=== PATIENT | male | born 1955 | race Caucasian/White ===

== ENCOUNTER 2016-10-08 07:44 | Inpatient (IN) | payer BC ==
[2016-10-08] MEDS ORDERED: SODIUM CHLORIDE 0.9% 1,000 ML IV STA ×2 (08:49)
[2016-10-08] MEDS ORDERED: ONDANSETRON 4 MG/2 ML VIAL IVP STA (08:49)
[2016-10-08] MEDS ORDERED: PANTOPRAZOLE 40 MG/10 ML VIAL IVP STA (08:49)
[2016-10-08 09:09] LABS: Aty Lym Flag Moderate; CH 32.1; CHCM 34.4; HCT 39.8 % (39.0-53.0); HDW 2.67; HGB 13.7 gm/dL (13.0-17.5); MCH 32.4 pg (25.0-35.0); MCHC 34.5 g/dL (31.0-37.0); MCV 93.7 fL (80.0-100.0); RBC 4.24 m/uL (4.30-5.90); RDW 12.8 % (11.5-15.5); WBC 7.1 k/uL (3.8-10.6); WBC (Perox) 7.41
[2016-10-08 09:22] LABS: INR 1.1 (<1.1); Partial Thromboplastin Time 24.1 sec (22.0-30.0); Prothrombin Time 11.1 sec (9.0-12.0)
[2016-10-08 09:29] LABS: Add Differential Manual Differential
[2016-10-08 09:34] LABS: Nucleated Red Blood Cells 0 /100 WBC (0-0); Total Cells Counted 100
--- NOTE | 2016-10-08 09:39 | CT ---
EXAMINATION TYPE: CT brain wo con DATE OF EXAM: 10/08/2016 9:34 AM COMPARISON: NONE HISTORY: 61-year-old male low Blood Pressure, right eye pain with visual abnormalities. TECHNIQUE: Examination was done in axial plane without intravenous contrast. Coronal and sagittal r econstructions performed. CT DLP: 1121 mGycm Automated exposure control for dose reduction was used. FINDINGS: There is no evidence of acute intracranial hemorrhage, acute ischemic changes, mass, mass-effect, or extra-axial fluid collection. There is no effacement of cerebral sulci or basal subarachnoid cister ns. There is no hydrocephalus. There is no midline shift. Mccollum-white matter distinction is preserv ed. Slight rightward nasal septal deviation. Paranasal sinuses and mastoid air cells are well pneumatized . Orbits and globes are intact. IMPRESSION: No acute intracranial abnormality seen.
[2016-10-08 09:45] LABS: Calcium 9.2 mg/dL (8.4-10.2); Potassium 5.8 mmol/L (3.5-5.1); Total Bilirubin 1.1 mg/dL (0.2-1.3); Total Protein 6.6 g/dL (6.3-8.2)
[2016-10-08 09:46] LABS: Creatine Kinase 51 U/L (55-170)
--- NOTE | 2016-10-08 09:55 | CT ---
EXAMINATION TYPE: CT abdomen pelvis wo con DATE OF EXAM: 10/08/2016 9:42 AM COMPARISON: 02/25/[address] chest 03/16/2013 HISTORY: 61-year-old male Abdominal pain, diarrhea for one week, dehydration. CT DLP: 715 mGycm. Automated exposure control for dose reduction was used. TECHNIQUE: Contiguous axial scanning of the abdomen and pelvis without IV contrast. Coronal and sagit sherrill reconstructions performed. FINDINGS: The heart is normal size without pericardial effusion. A 5 mm peripheral right lower lobe pulmonary n odule axial image 6 not clearly seen on 03/16/2013 and not included in the field of view on 02/25/2014. Six-month follow-up CT chest recommended. Cholecystectomy clips. Noncontrast appearance of the liver, adrenal glands, spleen, and pancreas grossly unremarkable. There is either a 3 mm vascular calcification or nonobstructive calculus in the upper pole left kidney. Re demonstrated atrophic right kidney. Moderate to severe atherosclerotic calcifications throughout the abdominal aorta and iliac arteries w ith postsurgical changes of aortobifemoral bypass as well as femorofemoral bypass. Patency cannot be assessed on this noncontrast exam. The right-sided bypass at the level of the right external iliac ar daniela remains similarly flattened. Scattered nonenlarged and mildly enlarged retroperitoneal lymph nodes measuring up to 1 cm are unchan ged from 2014. Scattered nonenlarged and borderline enlarged mesenteric lymph nodes are also present measuring up to 7 mm. Some of these mesenteric lymph nodes may be minimally larger from 2014 but othe r schneider are largely stable. No dilated small bowel, free fluid, or free air. There is liquid stool seen throughout the colon. Inc identally, there is ahaustral appearance to the distal sigmoid, axial image 69. Mild proximal sigmoid diverticulosis without acute diverticulitis seen. Bladder nondistended. Prostate gland mildly enlarged at 4.1 cm wide. Rectum appears normal. No abnorm al fluid collection in the pelvis. Some prominent bilateral external iliac chain lymph nodes measurin g up to 9 mm are unchanged from 2014 suggesting chronic reactive changes. Bones: Mild degenerative changes of the hips. Additional degenerative bony ankylosis of the SI joints and degenerative changes lower lumbar spine. No osseous destructive process. IMPRESSION: 1. Fluid-filled small bowel loops and liquid stool throughout the colon suggesting enteritis. 2. Moderate to severe atherosclerotic changes and prior aortobifemoral and femorofemoral bypass. Pat ency not assessed on this noncontrast study. Ahaustral appearance to the distal sigmoid could reflect chronic ischemic colitis. 3. Proximal to mid sigmoid diverticulosis without acute diverticulitis. 4. A 5 mm right lower lobe pulmonary nodule. 6 month follow-up CT chest can reassess. 5. Scattered nonenlarged and mildly enlarged abdominal and pelvic lymph nodes are largely stable fro 2013 suggesting a chronic reactive/post inflammatory etiology.
[2016-10-08 09:58] LABS: Creatine Kinase MB 1.5 ng/mL (0.0-2.4); Troponin I <0.012 ng/mL (0.000-0.034)
[2016-10-08] MEDS ORDERED: metroNIDAZOLE-NS PMX 500 MG in SALINE 1 100ML.BAG IVPB STA (12:55)
[2016-10-08] MEDS ORDERED: PIPERACILLIN-TAZOBACTAM 3.375 GM in DEXTROSE/WATER 1 50ML.BAG IVPB STA (12:55)
[2016-10-08] MEDS ORDERED: SODIUM CHLORIDE 0.9% 500 ML IV STA (13:06)
--- NOTE | 2016-10-08 13:06 | ED ---
General Adult HPI - General Chief complaint: Syncope Stated complaint: right eye pain, dehydration Time Seen by Provider: 10/08/16 08:40 Source: patient Mode of arrival: wheelchair Limitations: no limitations - History of Present Illness Initial comments: This 61-year-old white male presents with a complaint of diarrhea and near syncope. He states that for the past 5 days he's had diarrhea approximately every 20 minutes. He denies any blood in his stool. He relates that the diarrhea is a yellowish mucousy consistency. He has felt presyncopal. He called his doctor's office yesterday and was prescribed Flagyl. He's had a couple episodes of nausea and vomiting. He denies any recent antibiotic use or recent travel. Said some bilateral lower abdominal pain. He presents through triage and is hypotensive. relates that he's had a multitude of vascular problems including carotid stenosis and bilateral carotid endarterectomies as well as multiple cardiac stents and bilateral fem-pop bypasses. She relates that he's had some blockage in his carotid arteries despite the surgery. He apparently had some right eye pain in his vision was off initially upon arrival to triage. His symptoms in this regard have resolved by the time I see him. No other complaints or modifying factors. - Related Data Home Medications Medication Instructions Recorded Confirmed Aspirin 81 mg PO DAILY 02/25/14 10/08/16 Atorvastatin [Lipitor] 80 mg PO HS 02/25/14 10/08/16 Lisinopril [Zestril] 20 mg PO BID 02/25/14 10/08/16 Cholecalciferol [Vitamin D3] 2,000 unit PO DAILY 11/09/15 10/08/16 Clopidogrel [Plavix] 75 mg PO DAILY 11/09/15 10/08/16 Vitamin B Complex 1 cap PO DAILY 11/09/15 10/08/16 amLODIPine [Norvasc] 10 mg PO BID 11/09/15 10/08/16 Ascorbic Acid [Vitamin C] 1,000 mg PO DAILY 10/08/16 10/08/16 Atenolol [Tenormin] 12.5 mg PO DAILY 10/08/16 10/08/16 Chlorthalidone [Hygroton] 25 mg PO DAILY 10/08/16 10/08/16 Isosorbide Mononitrate ER [Imdur] 60 mg PO DAILY 10/08/16 10/08/16 Nitroglycerin Sl Tabs [Nitrostat] 0.4 mg SUBLINGUAL Q5M PRN 10/08/16 10/08/16 Ranolazine [Ranexa] 500 mg PO Q12H 10/08/16 10/08/16 hydrALAZINE HCL [Apresoline] 50 mg PO Q8H 10/08/16 10/08/16 Allergies Allergy/AdvReac Type Severity Reaction Status Date / Time No Known Allergies Allergy Verified 10/08/16 09:03 Review of Systems ROS Statement: Those systems with pertinent positive or pertinent negative responses have been documented in the HPI. ROS Other: All systems not noted in ROS Statement are negative. Past Medical History Past Medical History: Coronary Artery Disease (CAD), Chest Pain / Angina, Hyperlipidemia, Hypertension, Myocardial Infarction ([place]), Renal Disease, Vascular Disorder Additional Past Medical History / Comment(s): THIRD STAGE KIDNEY DISEASE, HX OF COLON POLYP. Last Myocardial Infarction Date:: unknown History of Any Multi-Drug Resistant Organisms: None Reported Past Surgical History: Cholecystectomy, Coronary Bypass/CABG, Heart Catheterization With Stent Additional Past Surgical History / Comment(s): TRIPLE CABG, HEART CATH WITH 2 STENTS, ZEESHAN CAROTID ENDARTERECTOMY,. BYPASS SURGERY ARM, BI-FEM SURGERY, FEM- FEM SURGERY . Past Anesthesia/Blood Transfusion Reactions: No Reported Reaction Date of Last Stent Placement:: 2011 Past Psychological History: No Psychological Hx Reported Smoking Status: Former smoker Past Alcohol Use History: None Reported Additional Past Alcohol Use History / Comment(s): SMOKED 1 & 1/2 PPD FOR 35 YEARS OR MORE. QUIT SMOKING 6 YRS AGO . (2009) Past Drug Use History: None Reported - Past Family History Mother Family Medical History: No Reported History General Exam - General Exam Comments Initial Comments: GENERAL: The patient is well nourished and dehydrated. VITAL SIGNS: Heart rate, blood pressure, respiratory rate reviewed as recorded in nurse's notes. EYES: Pupils are round and reactive. Extraocular movements are intact. No conjunctival / lid redness or swelling. ENT: No external evidence of injury, swelling, or ecchymosis. Airway is patent. Throat is clear. Mucous membranes are dry. NECK: Nontender. No swelling or evidence of injury. No subcutaneous emphysema. Trachea is midline. No thyroid mass. HEART: Regular rate and rhythm. Good peripheral pulses. LUNGS/CHEST: Breath sounds clear and equal bilaterally. No rales, rhonchi, or wheezes. No ecchymosis, subcutaneous emphysema, or tenderness. ABDOMEN: There is minimal tenderness to the bilateral lower abdomen. There is no distention. No palpable masses or organomegaly. No peritoneal signs. No abdominal wall swelling or ecchymosis. EXTREMITIES: No extremity tenderness. Normal muscle tone and function. No thoracolumbar tenderness. NEUROLOGIC: Sensation is grossly intact. Cranial nerve exam reveals face is symmetrical, tongue is midline, speech is clear. SKIN: No abrasions or ecchymosis is noted. No induration or masses noted. PSYCHIATRIC: Alert and oriented. Appropriate behavior and judgment. Limitations: no limitations Course Vital Signs 10/08/16 10/08/16 10/08/16 08:13 08:34 08:40 Temperature 97.2 F L Pulse Rate 60 60 57 L Respiratory 18 Rate Blood Pressure 73/41 79/48 83/49 O2 Sat by Pulse 97 95 95 Oximetry 10/08/16 09:04 Temperature Pulse Rate 57 L Respiratory 16 Rate Blood Pressure 96/52 O2 Sat by Pulse 93 L Oximetry Medical Decision Making - Medical Decision Making The patient was seen and examined. All diagnostics were reviewed. The patient had an IV started and he was thoroughly hydrated. An EKG was done which shows a normal sinus rhythm at a rate of 61. There is a nonspecific intraventricular conduction delay with the QRS duration of 118. There is some nonspecific ST-T wave changes noted. The VA interval is 208 in the QTC is 404. His laboratory is reviewed and shows a potassium elevated at 5.8 a CO2 of 14 and a creatinine severely elevated at 4.15. He does have known renal disease but his creatinine is much increased as compared to normal. The patient also had a computed tomography scan of the brain which did not show any acute processes. His computed tomography scan of abdomen and pelvis shows evidence of enteritis with multiple fluid-filled bowel loops. There is evidence of diverticulosis but no diverticulitis. The possibility of chronic ischemic colitis is possible. Other incidental findings are noted, see please report. Overall, is felt as though he likely has hypovolemic shock due to the amount of diarrhea he is having. Case is discussed with Dr. Ozzy courtney and he would like him admitted to the intensive care unit. He would like him placed on IV Flagyl and Zofran of this is ordered. The patient states that he's been unable to urinate thus far all in the ER and therefore a catheter will be placed and weak and therefore obtain accurate urine output. Approximately 30 minutes of critical care time was utilized and the treatment of the patient. - Lab Data Result diagrams: 10/08/16 08:40 10/08/16 08:40 Lab Results 10/08/16 10/08/16 10/08/16 Range/Units 08:40 08:40 08:40 WBC 7.1 (3.8-10.6) k/uL RBC 4.24 L (4.30-5.90) m/uL Hgb 13.7 (13.0-17.5) gm/dL Hct 39.8 (39.0-53.0) % MCV 93.7 (80.0-100.0) fL MCH 32.4 (25.0-35.0) pg MCHC 34.5 (31.0-37.0) g/dL RDW 12.8 (11.5-15.5) % Plt Count 194 (150-450) k/uL Neutrophils % (Manual) 65.0 % Band Neutrophils % 4.0 % Lymphocytes % (Manual) 16.0 % Monocytes % (Manual) 13.0 % Eosinophils % (Manual) 1.0 % Basophils % (Manual) 1.0 % Neutrophils # (Manual) 4.9 (1.3-7.7) k/uL Lymphocytes # (Manual) 1.1 (1.0-4.8) k/uL Monocytes # (Manual) 0.9 (0-1.0) k/uL Eosinophils # (Manual) 0.1 (0-0.7) k/uL Basophils # (Manual) 0.1 (0-0.2) k/uL Nucleated RBCs 0 (0-0) /100 WBC Anisocytosis (manual) Present PT (9.0-12.0) sec INR (<1.1) APTT (22.0-30.0) sec Sodium 136 L (137-145) mmol/L Potassium 5.8 H (3.5-5.1) mmol/L Chloride 106 (98-107) mmol/L Carbon Dioxide 14 L (22-30) mmol/L Anion Gap 16 mmol/L BUN 76 H (9-20) mg/dL Creatinine 4.15 H (0.66-1.25) mg/dL Est GFR (MDRD) Af Amer 18 (>60 ml/min/1.73 sqM) Est GFR (MDRD) Non-Af 15 (>60 ml/min/1.73 sqM) Glucose 122 H (74-99) mg/dL Plasma Lactic Acid Mayito (0.7-2.0) mmol/L Calcium 9.2 (8.4-10.2) mg/dL Total Bilirubin 1.1 (0.2-1.3) mg/dL AST 38 (17-59) U/L ALT 63 (21-72) U/L Alkaline Phosphatase 74 (38-126) U/L Total Creatine Kinase 51 L (55-170) U/L CK-MB (CK-2) 1.5 (0.0-2.4) ng/mL CK-MB (CK-2) Rel Index 2.9 Troponin I <0.012 (0.000-0.034) ng/mL Total Protein 6.6 (6.3-8.2) g/dL Albumin 3.5 (3.5-5.0) g/dL Amylase 51 (30-110) U/L Lipase 146 (23-300) U/L C. difficile (EIA) Intrp (Negative) 10/08/16 10/08/16 10/08/16 Range/Units 08:40 09:09 09:49 WBC (3.8-10.6) k/uL RBC (4.30-5.90) m/uL Hgb (13.0-17.5) gm/dL Hct (39.0-53.0) % MCV (80.0-100.0) fL MCH (25.0-35.0) pg MCHC (31.0-37.0) g/dL RDW (11.5-15.5) % Plt Count (150-450) k/uL Neutrophils % (Manual) % Band Neutrophils % % Lymphocytes % (Manual) % Monocytes % (Manual) % Eosinophils % (Manual) % Basophils % (Manual) % Neutrophils # (Manual) (1.3-7.7) k/uL Lymphocytes # (Manual) (1.0-4.8) k/uL Monocytes # (Manual) (0-1.0) k/uL Eosinophils # (Manual) (0-0.7) k/uL Basophils # (Manual) (0-0.2) k/uL Nucleated RBCs (0-0) /100 WBC Anisocytosis (manual) PT 11.1 (9.0-12.0) sec INR 1.1 (<1.1) APTT 24.1 (22.0-30.0) sec Sodium (137-145) mmol/L Potassium (3.5-5.1) mmol/L Chloride (98-107) mmol/L Carbon Dioxide (22-30) mmol/L Anion Gap mmol/L BUN (9-20) mg/dL Creatinine (0.66-1.25) mg/dL Est GFR (MDRD) Af Amer (>60 ml/min/1.73 sqM) Est GFR (MDRD) Non-Af (>60 ml/min/1.73 sqM) Glucose (74-99) mg/dL Plasma Lactic Acid Mayito 0.8 (0.7-2.0) mmol/L Calcium (8.4-10.2) mg/dL Total Bilirubin (0.2-1.3) mg/dL AST (17-59) U/L ALT (21-72) U/L Alkaline Phosphatase (38-126) U/L Total Creatine Kinase (55-170) U/L CK-MB (CK-2) (0.0-2.4) ng/mL CK-MB (CK-2) Rel Index Troponin I (0.000-0.034) ng/mL Total Protein (6.3-8.2) g/dL Albumin (3.5-5.0) g/dL Amylase (30-110) U/L Lipase (23-300) U/L C. difficile (EIA) Intrp Negative (Negative) Disposition Clinical Impression: Abdominal pain, Diarrhea, Gastroenteritis, Acute kidney injury, Hyperkalemia, Severe dehydration, Near syncope, Nausea and vomiting Disposition: ADMITTED IP TO THIS [facility] Condition: Fair Time of Disposition: 13:05 Decision Date: 10/08/16 Decision Time: 13:05
[2016-10-08] MEDS ORDERED: NALOXONE 0.4 MG/ML 1 ML VIAL IV PRN (13:09)
[2016-10-08] MEDS ORDERED: HYDROmorphone 1 MG/ML 1 ML SYRINGE IVP PRN (13:09)
[2016-10-08] MEDS ORDERED: ACETAMINOPHEN TAB 325 MG TAB PO PRN (13:09)
[2016-10-08] MEDS ORDERED: NITROGLYCERIN SL TABS 0.4 MG TAB SUBLINGUAL PRN (13:12)
[2016-10-08 13:59] LABS: Glucose,Whole Blood 107 mg/dL (75-99)
[2016-10-08 14:03] LABS: Appearance,Urine Clear (Clear); Bilirubin,Urine Negative (Negative); Glucose,Urine (UA) Negative (Negative); Ketones,Urine Negative (Negative); Leukocyte Esterase,Urine Negative (Negative); Nitrite,Urine Negative (Negative); Protein,Urine Negative (Negative); Specific Gravity,Urine 1.012 (1.001-1.035); UA Billing (MACRO vs. MICRO) CHEM; Urobilinogen,Urine <2.0 mg/dL (<2.0)
--- NOTE | 2016-10-08 14:28 | P.HPIM ---
History of Present Illness H&P Date: 10/08/16 Chief Complaint: Severe diarrhea with hypotension. This is a 61-year-old male one of my patient with a previous medical history significant for coronary artery disease post coronary artery bypass graft back in 1997 followed by left heart catheterization in 03/28/2016 with percutaneous coronary intervention of the GROVES, peripheral vascular disease status post bifemoral bypass back in 1998, aortobifemoral bypass back in 2009, prior heart catheter physician and 2 stent placement in the past, hypertension and hypertensive cardio vascular disease, stable angina, chronic kidney disease stage III, vitamin D deficiency, patient was seen in my office about a week ago and he was complaining of increased swelling in both lower extremities, patient was taken off his chlorthalidone and he was placed on Lasix 60 mg Friday and Friday, patient was started on that immediately on on Friday developed to have a bit of loose stool at the same time he was started on magnesium because of a low magnesium and he was started on magnesium oxide 400 mg orally once every day, and his started at the same time on fenofibrate at 54 mg orally once every day, patient developed to have more and more abdominal pain associated with increased diarrhea with mild nausea without vomiting his diarrhea got to the point that the patient could not even go to work and he stated the last bili was taken was on Friday and Friday he woke up with significant diarrhea and abdominal pain patient felt a bit dizzy patient went back to bed and dried drank more fluid, patient became generally more weak and he ended up calling the office yesterday and he was prescribed a prescription of Flagyl as to follow-up with us as an outpatient however the patient ended up coming to the ER today he was found to have an acute kidney injury with a creatinine up to 4.15, his BUN in the high 70s and patient was quite acidotic with a bicarb level of 14 patient was admitted to the hospital for acute kidney injury, he had a computed tomography scan of the abdomen and pelvis that showed dilated loops of bowel suggestive of enterocolitis versus ischemic colitis which is most likely however his lactic acid level was within normal patient was quite hypertensive when he presented to the ER however he was given 2 boluses of normal saline and is feeling a lot better his blood pressures up to 130/75 and his heart rate is in the range of 65. Patient will be admitted to the selective care and he would be seen in consultation by gastroenterology. Review of Systems Constitutional: Reports chills, Reports lethargy, Reports malaise, Reports poor appetite, Reports weakness, Reports weight loss, Denies chronic headaches, Denies fever, Denies night sweats Eyes: denies blurred vision, denies bulging eye, denies decreased vision Ears: deny: decreased hearing Ears, nose, mouth and throat: Reports vertigo, Denies dysphagia, Denies neck lump, Denies sore throat Cardiovascular: Reports decreased exercise tolerance, Reports dyspnea on exertion, Reports high blood pressure, Reports shortness of breath, Denies chest pain, Denies irregular heart beat, Denies phlebitis, Denies rapid heart beat, Denies syncope Respiratory: Denies congestion, Denies cough, Denies cough with sputum, Denies home oxygen, Denies pain, Denies sleep apnea, Denies snoring, Denies wheezing Gastrointestinal: Reports abdominal pain, Reports bloating, Reports change in bowel habits, Reports diarrhea, Reports loss of appetite, Reports nausea, Denies BRBPR, Denies coffee ground emesis, Denies constipation, Denies dyspepsia , Denies early satiety, Denies heartburn, Denies hematemesis, Denies hematochezia, Denies indigestion, Denies melena, Denies vomiting Genitourinary: Reports nocturia, Denies dysuria Musculoskeletal: Denies myalgias Musculoskeletal: absent: ankle pain, ankle stiffness, ankle swelling, elbow pain , elbow stiffness, elbow swelling, foot pain, foot stiffness, foot swelling, hand pain, hand stiffness, hand swelling, hip pain, hip stiffness, hip swelling , knee pain, knee stiffness, knee swelling, shoulder pain, shoulder stiffness, shoulder swelling, wrist pain, wrist stiffness, wrist swelling Integumentary: Denies pruritus, Denies rash Neurological: Denies numbness, Denies weakness Psychiatric: Denies anxiety, Denies depression Endocrine: Denies fatigue, Denies weight change Past Medical History Past Medical History: Coronary Artery Disease (CAD), Chest Pain / Angina, Hyperlipidemia, Hypertension, Myocardial Infarction ([place]), Osteoarthritis (OA), Prostate Disorder, Renal Disease, Vascular Disorder Additional Past Medical History / Comment(s): THIRD STAGE KIDNEY DISEASE, HX OF COLON POLYP. Last Myocardial Infarction Date:: unknown History of Any Multi-Drug Resistant Organisms: None Reported Past Surgical History: Cholecystectomy, Coronary Bypass/CABG, Heart Catheterization With Stent Additional Past Surgical History / Comment(s): TRIPLE CABG, HEART CATH WITH 2 STENTS, ZEESHAN CAROTID ENDARTERECTOMY,. BYPASS SURGERY ARM, BI-FEM SURGERY, FEM- FEM SURGERY . Coronary artery bypass graft 3 back in 1997, left heart catheterization 03/28/2016 with stent placement of the left internal mammary artery. Aortobifemoral bypass in 1998, femoral-femoral bypass in 2009, left heart catheterization in 2009. Last colonoscopy 11/13/2015. Past Anesthesia/Blood Transfusion Reactions: No Reported Reaction Date of Last Stent Placement:: 2011 Past Psychological History: No Psychological Hx Reported Smoking Status: Former smoker Past Alcohol Use History: None Reported Additional Past Alcohol Use History / Comment(s): SMOKED 1 & 1/2 PPD FOR 35 YEARS OR MORE. QUIT SMOKING 6 YRS AGO . (2009) Past Drug Use History: None Reported - Past Family History Mother Family Medical History: CVA/TIA (Mother at age of 62 from the CVA and she has an alcohol issues.) Father Family Medical History: Coronary Artery Disease (CAD) (Father at age of 62 from a cardiac infarction.) Brother(s) Family Medical History: Hyperlipidemia, Hypertension, Liver Disease (Patient has 4 brothers one of them with hypertension and hyper lipidemia the other liver disease due to alcoholic hepatitis the third brother with alcoholism .) Sister(s) Family Medical History: Hypertension (Patient has one sister with hypertension.) Medications and Allergies Home Medications Medication Instructions Recorded Confirmed Type Aspirin 81 mg PO DAILY 02/25/14 10/08/16 History Atorvastatin [Lipitor] 80 mg PO HS 02/25/14 10/08/16 History Lisinopril [Zestril] 20 mg PO BID 02/25/14 10/08/16 History Cholecalciferol [Vitamin D3] 2,000 unit PO DAILY 11/09/15 10/08/16 History Clopidogrel [Plavix] 75 mg PO DAILY 11/09/15 10/08/16 History Vitamin B Complex 1 cap PO DAILY 11/09/15 10/08/16 History amLODIPine [Norvasc] 10 mg PO BID 11/09/15 10/08/16 History Ascorbic Acid [Vitamin C] 1,000 mg PO DAILY 10/08/16 10/08/16 History Atenolol [Tenormin] 12.5 mg PO DAILY 10/08/16 10/08/16 History Chlorthalidone [Hygroton] 25 mg PO DAILY 10/08/16 10/08/16 History Isosorbide Mononitrate ER [Imdur] 60 mg PO DAILY 10/08/16 10/08/16 History Nitroglycerin Sl Tabs [Nitrostat] 0.4 mg SUBLINGUAL Q5M PRN 10/08/16 10/08/16 History Ranolazine [Ranexa] 500 mg PO Q12H 10/08/16 10/08/16 History hydrALAZINE HCL [Apresoline] 50 mg PO Q8H 10/08/16 10/08/16 History Allergies Allergy/AdvReac Type Severity Reaction Status Date / Time No Known Allergies Allergy Verified 10/08/16 09:03 Physical Exam - Constitutional General appearance: average body habitus, no acute distress - EENT Eyes: anicteric sclerae, EOMI, PERRLA, no ptosis, no scleral icterus, normal appearance ENT: NA/AT, normal oropharynx, no thrush Ears: bilateral: normal - Neck Neck: no lymphadenopathy, normal ROM, no rigidity, no stridor, no thyromegaly Carotids: bilateral: upstroke delayed Thyroid: bilateral: normal size - Respiratory Respiratory: bilateral: diminished, negative: dullness, rales, rhonchi, wheezing , prolonged expiration, prolonged inspiration - Cardiovascular Rhythm: regular Heart sounds: normal: S1, S2 Abnormal Heart Sounds: systolic murmur, no S3 Gallop, no S4 Gallop, no click - Gastrointestinal General gastrointestinal: normal bowel sounds, soft, no splenomegaly, tenderness (Left lower quadrant.), no umbilical hernia, no ventral hernia - Genitourinary Male genitourinary: enlarged prostate - Integumentary Integumentary: normal, normal turgor - Neurologic Neurologic: CNII-XII intact - Musculoskeletal Musculoskeletal: gait normal, strength equal bilaterally - Psychiatric Psychiatric: A&O x's 3, appropriate affect, intact judgment & insight Results CBC & Chem 7: 10/08/16 08:40 10/08/16 08:40 Labs: Abnormal Lab Results - Last 24 Hours (Table) 10/08/16 Range/Units 13:39 POC Glucose (mg/dL) 107 H (75-99) mg/dL Thrombosis Risk Factor Assmnt - DVT/VTE Prophylaxis DVT/VTE Prophylaxis: Pharmacologic Prophylaxis ordered, Mechanical Prophylaxis ordered Assessment and Plan Plan: Assessment and plan: 1. Acute kidney injury and top of chronic kidney disease secondary to acute tubular necrosis and the use of diuretics along with diarrhea. IV fluid D5W with 3 A of sodium bicarbonate at 1 25 mL an hour, ultrasound of the kidneys, Horton catheter, urine sodium, urine eosinophils, urine spot for protein and creatinine, nephrology consult, monitor the patient input and output and daily weight, hold lisinopril, hold diuretics, hold fenofibrate. 2. Abdominal pain with possible enterocolitis versus ischemic colitis likely due to significant vascular pathology. IV fluid resuscitation, lactic acid will be repeated tomorrow morning, so far his lactic acid is normal, GI consultation . Start the patient on Zosyn 2.25 g IV piggyback every 6 hours, metronidazole 500 mg IV piggyback every 8 hours, keep the patient on clear liquid diet. 3. CAD post CABG 3 and PCI of the GROVES. Continue atenolol 12.5 mg orally once every day, continue aspirin 81 mg once every day, continue Lipitor 80 mg orally once every day, continue Imdur 60 minute gram orally once every day, continue Ranexa 500 mg orally twice every day. 4. Stable angina. Continue treatment as in the previous paragraph. 5. Chronic kidney disease stage III. Continue treatment as in paragraph #1. 6. Hypertension and hypertensive cardiovascular disease. Discontinue lisinopril, hold off amlodipine, continue patient on atenolol 12.5 mg orally once every day. 7. Carotid artery disease. Stable at this time. Continue patient on baby aspirin 81 mg orally once every day as well as Lipitor 80 mg orally once every day for secondary prevention. 8. PAD. Continue patient on aspirin and Lipitor. 9. Vitamin D deficiency. Stable at this time. Continue vitamin D supplement 2000 units once every day. 10. Hyperlipidemia. Continue Lipitor and discontinue fenofibrate. 11. Anion gap and Non-anion gap metabolic acidosis due to combination of acute kidney injury and diarrhea. Patient was started on bicarb drip at 1 25 mL an hour. 12. DVT prophylaxis. Patient will be placed on lovenox 40 mg sc daily. 13. GI prophylaxis. Protonix 40 mg IVP once every day. 14. Full code. 15. Estimate a length of stay 2 midnights.
[2016-10-08] MEDS: DEXTROSE 5% IN WATER 1,000 ML with SODIUM BICARB (1 MEQ/ML) 150 ML IV SCH ×2 (15:22→23:58)
--- NOTE | 2016-10-08 15:29 | US ---
EXAMINATION TYPE: US renals and bladder DATE OF EXAM: 10/08/2016 3:20 PM COMPARISON: NONE CLINICAL HISTORY: CHANI. EXAM MEASUREMENTS: Right Kidney: 8.1 x 3.6 x 3.2 cm Left Kidney: 11.1 x 7.5 x 6.3 cm A 0.2 cm calcification in the mid left renal cortical medullary junction may be present without shado wing of this could be a nonobstructing renal stone. Right Kidney: atrophic Left Kidney: No hydronephrosis or masses seen Bladder: not seen, patient has catheter There is no evidence for hydronephrosis at this point in time. No nephrolithiasis is seen. No cora s are identified. The urinary bladder is anechoic. Bilateral ureteral jets are seen. IMPRESSION: 1. Thinning of the right renal cortex suggestive of some chronic renal failure present.
[2016-10-08] MEDS: RANOLAZINE 500 MG TAB.ER.12H PO SCH ×2 (15:40→23:58)
[2016-10-08 20:48] VITALS: RESP 18
[2016-10-08] MEDS ORDERED: ATORVASTATIN 80 MG TAB PO SCH (21:00)
[2016-10-09] MEDS ORDERED: MAG HYDROX/AL HYDROX/SIMETH 30 ML CUP PO PRN (00:16)
[2016-10-09] MEDS ORDERED: MELATONIN 5 MG TABLET PO SCH (00:30)
[2016-10-09 06:56] LABS: Aty Lym Flag Moderate; CH 31.8; CHCM 34.4; HCT 35.2 % (39.0-53.0); HDW 2.71; MCH 31.7 pg (25.0-35.0); MCHC 34.1 g/dL (31.0-37.0); MCV 92.7 fL (80.0-100.0); Mean Platelet Volume 7.1; RDW 12.5 % (11.5-15.5); WBC 4.4 k/uL (3.8-10.6); WBC (Perox) 4.95
[2016-10-09 06:57] LABS: Calcium 8.4 mg/dL (8.4-10.2); Magnesium 1.8 mg/dL (1.6-2.3); Phosphorous 3.7 mg/dL (2.5-4.5); Potassium 4.5 mmol/L (3.5-5.1); Total Bilirubin 0.7 mg/dL (0.2-1.3); Total Protein 5.4 g/dL (6.3-8.2)
[2016-10-09 08:07] LABS: Add Differential Manual Differential
[2016-10-09 08:10] LABS: Manual Review Performed; Nucleated Red Blood Cells 0 /100 WBC (0-0)
[2016-10-09 08:13] LABS: Band Neutrophils % 0.5 %; Total Cells Counted 200
[2016-10-09] MEDS: DEXTROSE 5% IN WATER 1,000 ML with SODIUM BICARB (1 MEQ/ML) 150 ML IV SCH (08:39)
[2016-10-09] MEDS: ENOXAPARIN 40 MG/0.4 ML SYRINGE SQ SCH ×2 (08:40→08:53)
[2016-10-09 08:53] VITALS: BP 162/74; PULSE 74; TEMP 98.2
[2016-10-09] MEDS ORDERED: CHOLECALCIFEROL 1,000 UNIT TAB PO SCH (09:00)
[2016-10-09] MEDS ORDERED: ASCORBIC ACID 500 MG TAB PO SCH (09:00)
[2016-10-09] MEDS ORDERED: ASPIRIN 81 MG CHEW PO SCH (09:00)
[2016-10-09] MEDS ORDERED: ATENOLOL 12.5 MG TAB PO SCH (09:00)
[2016-10-09] MEDS ORDERED: ISOSORBIDE MONONITRATE ER 60 MG TAB.ER.24H PO SCH (09:00)
[2016-10-09] MEDS ORDERED: CHLORTHALIDONE 25 MG TAB PO SCH (09:00)
[2016-10-09] MEDS ORDERED: B COMPLEX-VIT C-VIT E-ZINC 1 EACH TAB PO SCH (09:00)
[2016-10-09] MEDS ORDERED: PANTOPRAZOLE 40 MG/10 ML VIAL IV SCH (09:00)
[2016-10-09] MEDS ORDERED: CLOPIDOGREL 75 MG TAB PO SCH (09:00)
--- NOTE | 2016-10-09 09:16 | P.CONS ---
History of Present Illness - Reason for Consult Consult date: 10/09/16 Diarrhea Requesting physician: Anny Preciado - History of Present Illness 61-year-old gentleman patient of Dr. Preciado with a past medical history CAD PCI stent, CABG, cholecystectomy, hyperlipidemia, hypertension, [place], chronic kidney disease, PVD/ aortobifemoral bypass. Seen by PCP about a week ago with lower extremity edema he was placed on Lasix with discontinuance of chlorthalidone. Within a few days he developed multiple episodes of nonbloody diarrhea with mild nausea and weakness. Admitted with persistent systolic blood pressures in the 70s, diarrhea, weakness, lower abdominal pain, and elevated BUN/creatinine 76 and 4.1 respectively. Received fluid boluses with improvement in systolic blood pressures. Consultation requested for diarrhea. Fecal leukocytes no WBCs seen. Clostridium difficile negative. Stool culture pending. White count 7.1. Hemoglobin 13.7. He reports a "horrible night" still passing loose stool but would not quantify. Nursing reports volume of diarrhea has improved. Afraid to eat secondary to diarrhea. Denies hematemesis hematochezia melena. BUN and creatinine improved. CT abdomen and pelvis reported fluid filled small bowel loops and liquid stool throughout the colon suggesting enteritis. Proximal to mid sigmoid diverticulosis without acute diverticulitis. Ahaustral appearance to the distal sigmoid could reflect chronic ischemic colitis. Scattered nonenlarged a mildly enlarged abdominal pelvic lymph nodes largely stable from 2013 imaging suggesting a chronic reactive postinflammatory etiology. Colonoscopy November 2015 for screening indicated sigmoid diverticulosis no evidence of colorectal neoplasia, acute diverticulitis or strictures. Polypectomy 3. Review of Systems Constitutional: Denies fever, chills, sweats, weight gain, or loss. HEENT: Negative for migraines, blurred vision or loss, earaches, drainage, tinnitus, oral mucosal lesions, dysphagia, or odynophagia. Cardiac: CAD with PCI stent. CABG. Hyperlipidemia. Hypertension. OK. Negative for chest pain, arrhythmias, or palpitation. Respiratory: Negative for shortness of breath, hemoptysis, cough, or sputum production. Gastrointestinal: See HPI for pertinent findings. Genitourinary: Prostate disorder. Negative for hematuria, urgency, frequency, polyuria, dysuria, or penile discharge. Musculoskeletal: Osteoarthritis. Neurologic: Negative for stroke or TIA. Nephrology: Chronic kidney disease. Endocrine: Negative for thyroid problems. Skin: Negative for rash or itching. Psychiatric: Negative history for depression and anxiety All systems: negative (See HPI) Past Medical History Past Medical History: Coronary Artery Disease (CAD), Chest Pain / Angina, Hyperlipidemia, Hypertension, Myocardial Infarction ([place]), Osteoarthritis (OA), Prostate Disorder, Renal Disease, Vascular Disorder Additional Past Medical History / Comment(s): THIRD STAGE KIDNEY DISEASE, HX OF COLON POLYP. Last Myocardial Infarction Date:: unknown History of Any Multi-Drug Resistant Organisms: None Reported Past Surgical History: Cholecystectomy, Coronary Bypass/CABG, Heart Catheterization With Stent Additional Past Surgical History / Comment(s): TRIPLE CABG, HEART CATH WITH 2 STENTS, ZEESHAN CAROTID ENDARTERECTOMY,. BYPASS SURGERY ARM, BI-FEM SURGERY, FEM- FEM SURGERY . Coronary artery bypass graft 3 back in 1997, left heart catheterization 03/28/2016 with stent placement of the left internal mammary artery. Aortobifemoral bypass in 1998, femoral-femoral bypass in 2009, left heart catheterization in 2009. Last colonoscopy 11/13/2015. Past Anesthesia/Blood Transfusion Reactions: No Reported Reaction Date of Last Stent Placement:: 2011 Past Psychological History: No Psychological Hx Reported Additional Psychological History / Comment(s): Pt resides with his spouse. He is independent. Smoking Status: Former smoker Past Alcohol Use History: None Reported Additional Past Alcohol Use History / Comment(s): SMOKED 1 & 1/2 PPD FOR 35 YEARS OR MORE. QUIT SMOKING 6 YRS AGO . (2009) Past Drug Use History: None Reported - Past Family History Mother Family Medical History: CVA/TIA (Mother at age of 62 from the CVA and she has an alcohol issues.) Additional Family Medical History / Comment(s): Mother from CVAs at the age of 62yrs. Father Family Medical History: Coronary Artery Disease (CAD) (Father at age of 62 from a cardiac infarction.) Additional Family Medical History / Comment(s): Father of a OK at the age of 62 yrs. Brother(s) Family Medical History: Hyperlipidemia, Hypertension, Liver Disease (Patient has 4 brothers one of them with hypertension and hyper lipidemia the other liver disease due to alcoholic hepatitis the third brother with alcoholism .) Sister(s) Family Medical History: Hypertension (Patient has one sister with hypertension.) Medications and Allergies Home Medications Medication Instructions Recorded Confirmed Type Aspirin 81 mg PO DAILY 02/25/14 10/08/16 History Atorvastatin [Lipitor] 80 mg PO HS 02/25/14 10/08/16 History Lisinopril [Zestril] 20 mg PO BID 02/25/14 10/08/16 History Cholecalciferol [Vitamin D3] 2,000 unit PO DAILY 11/09/15 10/08/16 History Clopidogrel [Plavix] 75 mg PO DAILY 11/09/15 10/08/16 History Vitamin B Complex 1 cap PO DAILY 11/09/15 10/08/16 History amLODIPine [Norvasc] 10 mg PO BID 11/09/15 10/08/16 History Ascorbic Acid [Vitamin C] 1,000 mg PO DAILY 10/08/16 10/08/16 History Atenolol [Tenormin] 12.5 mg PO DAILY 10/08/16 10/08/16 History Chlorthalidone [Hygroton] 25 mg PO DAILY 10/08/16 10/08/16 History Isosorbide Mononitrate ER [Imdur] 60 mg PO DAILY 10/08/16 10/08/16 History Nitroglycerin Sl Tabs [Nitrostat] 0.4 mg SUBLINGUAL Q5M PRN 10/08/16 10/08/16 History Ranolazine [Ranexa] 500 mg PO Q12H 10/08/16 10/08/16 History hydrALAZINE HCL [Apresoline] 50 mg PO Q8H 10/08/16 10/08/16 History Allergies Allergy/AdvReac Type Severity Reaction Status Date / Time No Known Allergies Allergy Verified 10/08/16 09:03 Physical Exam Vitals: Vital Signs Temp Pulse Pulse Resp BP BP Pulse Ox 10/09/16 04:00 97.9 F 69 18 149/68 93 L 10/09/16 00:00 97.5 F L 69 18 145/65 94 L 10/08/16 20:39 97.0 F L 58 L 18 124/58 95 10/08/16 19:01 98.2 F 55 L 16 131/61 95 10/08/16 18:15 56 L 16 115/56 92 L 10/08/16 17:11 97.0 F L 58 L 16 109/53 94 L 10/08/16 16:34 56 L 104/56 91 L 04/04/17 16:00 54 L 16 107/52 92 L 10/08/16 15:34 54 L 102/54 94 L 10/08/16 14:59 55 L 16 107/55 94 L 10/08/16 14:34 59 L 115/59 96 Intake and Output 10/08/16 10/09/16 10/09/16 22:59 06:59 14:59 Intake Total 1900 Output Total 1000 300 Balance -1000 1600 Intake: Intake, IV Titration 1500 Amount Dextrose 5% in Water 1, 1500 000 ml @ 125 mls/hr IV . Q9H12M CATHERINE with Sodium Bicarb (1 Meq/ml) 150 ml Rx#:[id number] Oral 400 Output: Urine 1000 300 Other: Voiding Method Indwelling Catheter Toilet # Voids 1 # Bowel Movements 1 1 Weight 84.3 kg General appearance: The patient is alert, oriented, in no acute distress. HET: Head is normocephalic and atraumatic. Pupils are equal and reactive. Oropharynx is clear without lesions. Neck: Supple without lymphadenopathy. Trachea midline. Heart: S1 S2. Regular rate and rhythm. Lungs: No crackles or wheezes are heard. Abdomen: Soft, mild lower abdominal discomfort, nondistended with bowel sounds. No peritoneal signs. No palpable organomegaly or masses. Extremities: Normal skin color and turgor. No cyanosis, rash, ulceration, clubbing, or edema. Radial and pedal pulses are 2/4 bilaterally. Neurological: No focal deficits. Strength and sensation are grossly intact. Results CBC & Chem 7: 10/09/16 06:09 10/09/16 06:09 Labs: Abnormal Lab Results - Last 24 Hours (Table) 10/08/16 10/09/16 10/09/16 Range/Units 13:39 06:09 06:09 RBC 3.80 L (4.30-5.90) m/uL Hgb 12.0 L (13.0-17.5) gm/dL Hct 35.2 L (39.0-53.0) % BUN 61 H (9-20) mg/dL Creatinine 2.41 H (0.66-1.25) mg/dL Glucose 144 H (74-99) mg/dL POC Glucose (mg/dL) 107 H (75-99) mg/dL Total Protein 5.4 L (6.3-8.2) g/dL Albumin 2.8 L (3.5-5.0) g/dL CT scan - abdomen: report reviewed (reviewed by Dr. Greenberg) Assessment and Plan (1) Diarrhea Narrative/Plan: Suspect gastroenteritis possible self limiting infectious possible inflammatory Status: Acute (2) Abdominal pain Status: Acute (3) Chronic kidney disease Status: Acute (4) Acute kidney injury Status: Acute (5) Severe dehydration Status: Acute Plan: 1. Slow advancement of diet as tolerated. 2. Imodium as needed for diarrhea. Continue IV hydration supportive measures. 3. Repeat endoscopy not planned at this time. 4. We'll continue to follow with you. Thank you for this kind referral and the opportunity to participate in the care of your patient. This consultation was discussed with Dr. Greenberg. The impression and plan of care have been directed as dictated.
[2016-10-09] MEDS ORDERED: LOPERAMIDE 2 MG CAP PO STA (09:17)
[2016-10-09] MEDS ORDERED: LOPERAMIDE 2 MG CAP PO PRN (09:17)
--- NOTE | 2016-10-09 13:01 | P.DS ---
Providers Date of admission: 10/08/16 13:09 Expected date of discharge: 10/09/16 Attending physician: Anny Preciado Primary care physician: Anny Preciado Hospital Course: This is a 61-year-old male one of my patient with a previous medical history significant for coronary artery disease post coronary artery bypass graft back in 1997 followed by left heart catheterization in 03/28/2016 with percutaneous coronary intervention of the GROVES, peripheral vascular disease status post bifemoral bypass back in 1998, aortobifemoral bypass back in 2009, prior heart catheter physician and 2 stent placement in the past, hypertension and hypertensive cardio vascular disease, stable angina, chronic kidney disease stage III, vitamin D deficiency, patient was seen in my office about a week ago and he was complaining of increased swelling in both lower extremities, patient was taken off his chlorthalidone and he was placed on Lasix 60 mg Friday and Friday, patient was started on that immediately on on Friday developed to have a bit of loose stool at the same time he was started on magnesium because of a low magnesium and he was started on magnesium oxide 400 mg orally once every day, and his started at the same time on fenofibrate at 54 mg orally once every day, patient developed to have more and more abdominal pain associated with increased diarrhea with mild nausea without vomiting his diarrhea got to the point that the patient could not even go to work and he stated the last bili was taken was on Friday and Friday he woke up with significant diarrhea and abdominal pain patient felt a bit dizzy patient went back to bed and dried drank more fluid, patient became generally more weak and he ended up calling the office yesterday and he was prescribed a prescription of Flagyl as to follow-up with us as an outpatient however the patient ended up coming to the ER today he was found to have an acute kidney injury with a creatinine up to 4.15, his BUN in the high 70s and patient was quite acidotic with a bicarb level of 14 patient was admitted to the hospital for acute kidney injury, he had a computed tomography scan of the abdomen and pelvis that showed dilated loops of bowel suggestive of enterocolitis versus ischemic colitis which is most likely however his lactic acid level was within normal patient was quite hypertensive when he presented to the ER however he was given 2 boluses of normal saline and is feeling a lot better his blood pressures up to 130/75 and his heart rate is in the range of 65. Patient will be admitted to the [facility] and he would be seen in consultation by gastroenterology. 10/08: Repeat BUN 61 and creatinine 2.41. Renal ultrasound shows thinning of the right renal cortex suggestive of some chronic renal failure. Patient has been seen by gastroenterology with recommendations to advance diet as tolerated, Imodium as needed for diarrhea. His diarrhea has decreased. Patient is requesting to be discharged home today. He will be discharged home today with follow-up in one week with repeat laboratory work. Discharge Diagnoses: 1. Acute kidney injury and top of chronic kidney disease secondary to acute tubular necrosis and the use of diuretics along with diarrhea. 2. Abdominal pain with possible enterocolitis versus ischemic colitis likely due to significant vascular pathology. 3. CAD post CABG 3 and PCI of the GROVES. 4. Stable angina. 5. Chronic kidney disease stage III. 6. Hypertension and hypertensive cardiovascular disease. 7. Carotid artery disease. Stable at this time. 8. PAD. 9. Vitamin D deficiency. 10. Hyperlipidemia. 11. Anion gap and Non-anion gap metabolic acidosis due to combination of acute kidney injury and diarrhea Discharge plan: Return home Impression and plan of care have been directed as dictated by the signing physician. Fabiana Montanez nurse practitioner acting as scribe for signing physician. Patient Condition at Discharge: Good Plan - Discharge Summary New Discharge Prescriptions: Ciprofloxacin HCl [Cipro] 250 mg PO Q12HR #14 tablet metroNIDAZOLE [Flagyl] 500 mg PO TID #21 tab Discharge Medication List Aspirin 81 mg PO DAILY 02/25/14 [History] Atorvastatin [Lipitor] 80 mg PO HS 02/25/14 [History] Cholecalciferol [Vitamin D3] 2,000 unit PO DAILY 11/09/15 [History] Clopidogrel [Plavix] 75 mg PO DAILY 11/09/15 [History] Vitamin B Complex 1 cap PO DAILY 11/09/15 [History] amLODIPine [Norvasc] 10 mg PO BID 11/09/15 [History] Ascorbic Acid [Vitamin C] 1,000 mg PO DAILY 10/08/16 [History] Atenolol [Tenormin] 12.5 mg PO DAILY 10/08/16 [History] Isosorbide Mononitrate ER [Imdur] 60 mg PO DAILY 10/08/16 [History] Nitroglycerin Sl Tabs [Nitrostat] 0.4 mg SUBLINGUAL Q5M PRN 10/08/16 [History] Ranolazine [Ranexa] 500 mg PO Q12H 10/08/16 [History] hydrALAZINE HCL [Apresoline] 50 mg PO Q8H 10/08/16 [History] Ciprofloxacin HCl [Cipro] 250 mg PO Q12HR #14 tablet 10/09/16 [Rx] Lisinopril [Zestril] 20 mg PO BID #0 10/09/16 [Rx] Melatonin 5 mg PO HS tablet 10/09/16 [Rx] metroNIDAZOLE [Flagyl] 500 mg PO TID #21 tab 10/09/16 [Rx] Follow up Appointment(s)/Referral(s): Anny Preciado MD [Primary Care Provider] - 10/16/16 10:30 am Ambulatory/Diagnostic Orders: Complete Blood Count w/diff [LAB.AMB] Location: Determined By Patient Comprehensive Metabolic Panel [LAB.AMB] Location: Determined By Patient Miscellaneous Lab Order [LAB.AMB] Location: Determined By Patient Patient Instructions/Handouts: Enteritis (DC) Discharge Disposition: HOME SELF-CARE
[2016-10-09 15:24] VITALS: BMI 28.2
[2016-10-10] MEDS ORDERED: PANTOPRAZOLE 40 MG TABLET PO SCH (07:30)
== END 2016-10-09 15:21 | disposition home or self-care (01) | DRG 683 ==
LOC: EC 07:44 → 6ICU 13:09 → 6SEL 13:35
PROVIDERS: ADMIT Internal Medicine; ATTEND Internal Medicine
DX: N17.0 Acute kidney failure with tubular necrosis (principal); E87.2 Acidosis; K55.9 Vascular disorder of intestine, unspecified; N18.3 Chronic kidney disease, stage 3 (moderate); I13.10 Hypertensive heart and chronic kidney disease without heart failure, with stage 1 through stage 4 chronic kidney disease, or unspecified chronic kidney disease; K52.9 Noninfective gastroenteritis and colitis, unspecified; K57.30 Diverticulosis of large intestine without perforation or abscess without bleeding; E86.0 Dehydration; I25.118 Atherosclerotic heart disease of native coronary artery with other forms of angina pectoris; E55.9 Vitamin D deficiency, unspecified; M19.91 Primary osteoarthritis, unspecified site; I73.9 Peripheral vascular disease, unspecified; E78.5 Hyperlipidemia, unspecified; N42.9 Disorder of prostate, unspecified; I25.2 Old myocardial infarction; Z95.1 Presence of aortocoronary bypass graft; Z95.5 Presence of coronary angioplasty implant and graft; Z86.010 Personal history of colon polyps; Z90.49 Acquired absence of other specified parts of digestive tract; Z87.891 Personal history of nicotine dependence; Z79.82 Long term (current) use of aspirin; Z79.02 Long term (current) use of antithrombotics/antiplatelets; Z79.899 Other long term (current) drug therapy
CPT/HCPCS: 36415; 70450; 74176; 76770; 80053; 81003; 82150; 82550; 82553; 83605; 83690; 83735; 84100; 84484; 85025; 85610; 85730; 87040; 87045; 87046; 87324; 89055; 93005; 96361; 96365; 96366; 96375; 96376; 99285

== ENCOUNTER → 2017-07-09 | Outpatient (CLI) | payer BC ==
[2017-07-09 07:13] LABS: Calcium 10.1 mg/dL (8.4-10.2); Potassium 5.5 mmol/L (3.5-5.1)
== END | disposition home or self-care (01) ==
LOC: LABWHC1 06:38
PROVIDERS: ATTEND Internal Medicine Nephrology
DX: I10 Essential (primary) hypertension (principal)
CPT/HCPCS: 36415; 80048; 82088; 84244

== ENCOUNTER → 2017-07-11 | Outpatient (CLI) | payer BC ==
[2017-07-11 09:41] LABS: Calcium 9.6 mg/dL (8.4-10.2); Potassium 5.4 mmol/L (3.5-5.1)
== END | disposition home or self-care (01) ==
LOC: LABWHC1 09:06
PROVIDERS: ATTEND Internal Medicine
DX: E87.5 Hyperkalemia (principal)
CPT/HCPCS: 36415; 80048

== ENCOUNTER → 2017-09-17 | Outpatient (CLI) | payer BC ==
--- NOTE | 2017-09-17 14:40 | XR ---
EXAMINATION TYPE: XR ankle complete LT DATE OF EXAM: 09/17/2017 COMPARISON: NONE HISTORY: 62-year-old male with medial sided pain after injury TECHNIQUE: 3 views FINDINGS: Circumferential soft tissue swelling at the ankle. Vascular calcifications suggest underlying diabete s and/or chronic kidney disease. No acute fracture, subluxation, or dislocation seen. Ankle mortise i s congruent. Preservation of the distal tibiofibular overlap. IMPRESSION: Circumferential soft tissue swelling at the ankle. No acute osseous abnormality seen.
--- NOTE | 2017-09-17 14:41 | US ---
EXAMINATION TYPE: US venous doppler duplex LE LT DATE OF EXAM: 09/17/2017 1:25 PM COMPARISON: NONE CLINICAL HISTORY: 62-year-old male pain in left ankle M25.572. Left ankle pain and swelling SIDE PERFORMED: Left TECHNIQUE: The lower extremity deep venous system is examined utilizing real time linear array sonog ze with graded compression, doppler sonography and color-flow sonography. FINDINGS: VESSELS IMAGED: External Iliac Vein (EIV) Common Femoral Vein Deep Femoral Vein Greater Saphenous Vein * Femoral Vein Popliteal Vein Small Saphenous Vein * Proximal Calf Veins (* superficial vessels) Left Leg: Appears negative for DVT called Dr Preciado on his cell or home phone IMPRESSION: No evidence for DVT within the left lower extremity imaged from the groin into the calf.
== END | disposition home or self-care (01) ==
LOC: RADUSWWP 13:00
PROVIDERS: ATTEND Internal Medicine
DX: M79.89 Other specified soft tissue disorders (principal)

== ENCOUNTER → 2017-11-19 | Outpatient (CLI) | payer BC ==
--- NOTE | 2017-11-19 14:49 | XR ---
EXAMINATION TYPE: XR hand complete LT DATE OF EXAM: 11/19/2017 COMPARISON: NONE HISTORY: 62-year-old male with left middle finger gout TECHNIQUE: 3 views FINDINGS: Fusiform soft tissue swelling centered on the third PIP joint. Possible juxta-articular erosions [place] g the proximal phalangeal neck. Underlying osteoarthritic changes present throughout the especially a t the triscaphe joint, third and fourth MCP joints, and mild scattered throughout the DIP joints. A 1 mm punctate density in the volar soft tissues of the third finger could be external debris or tiny r etained foreign body material. No acute fracture, subluxation or dislocation. IMPRESSION: 1. Pronounced fusiform soft tissue swelling centered along the third PIP joint with possible subtle j uxta-articular erosions along the proximal phalangeal neck. Findings can be seen in the setting of go ut. 2. Tiny 1 mm density along the volar aspect of the middle finger could represent external debris or t iny retained foreign body in the soft tissues. 3. Scattered osteolytic or arthritic changes particularly at the third and fourth MCP joints.
== END | disposition home or self-care (01) ==
LOC: RADXRMAIN 14:23
PROVIDERS: ATTEND Internal Medicine
DX: M79.89 Other specified soft tissue disorders (principal); R93.7 Abnormal findings on diagnostic imaging of other parts of musculoskeletal system; M10.9 Gout, unspecified